=== PATIENT | female | born 1975 | race Caucasian/White ===

== ENCOUNTER 2017-06-18 15:24 | Emergency (ER) | payer OTHER ==
[2017-06-18 16:10] LABS: ABSOLUTE BASOPHILS # (AUTO) 0.1 10^3/uL (0.0-0.2); ABSOLUTE EOSINOPHILS # (AUTO) 0.5 10^3/uL (0.0-0.6); ABSOLUTE MONOCYTES (AUTO) 1.3 10^3/uL (0.1-1.4); ABSOLUTE NEUT (AUTO) 8.4 10^3/uL (1.7-8.2); BASOPHILS % (AUTO) 0.7 % (0-2); EOSINOPHILS % (AUTO) 3.2 % (0-6); HGB HCT DIFFERENCE -2.6; LYMPHOCYTES % (AUTO) 28.3 % (13-45); MEAN CORPUSCULAR HEMOGLOBIN 17.3 pg (27.0-33.4); MEAN CORPUSCULAR HGB CONC 29.5 g/dL (32.0-36.0); RED BLOOD COUNT 3.91 10^6/uL (3.72-5.28); RED CELL DISTRIBUTION WIDTH 19.2 % (11.5-14.0); SEGMENTED NEUTROPHILS % (AUTO) 58.8 % (42-78); WHITE BLOOD COUNT 14.2 10^3/uL (4.0-10.5)
[2017-06-18 16:15] LABS: HEMOGLOBIN 6.8 g/dL (12.0-15.5)
[2017-06-18] MEDS ORDERED: NORMAL SALINE 250 ML IV PRN (16:17)
[2017-06-18 16:30] LABS: ANION GAP 12 (5-19); BLOOD UREA NITROGEN 11 mg/dL (7-20); CALCIUM 9.5 mg/dL (8.4-10.2); CARBON DIOXIDE 25 mmol/L (22-30); CHLORIDE 105 mmol/L (98-107); CREATINE KINASE 22 U/L (30-135); CREATININE RESULT 0.88 mg/dL (0.52-1.25); GLUCOSE 70 mg/dL (75-110); POTASSIUM 4.3 mmol/L (3.6-5.0); SODIUM 141.6 mmol/L (137-145)
[2017-06-18 16:33] LABS: ANISOCYTOSIS 2+; HYPOCHROMASIA 2+; MICROCYTOSIS 4+; OVALOCYTES 1+; POIKILOCYTOSIS 1+; POLYCHROMASIA 1+; SCHISTOCYTES SLIGHT; TARGET CELLS SLIGHT; TEAR DROP CELLS SLIGHT; TOXIC GRANULATION SLIGHT
[2017-06-18 16:34] LABS: MEAN CORPUSCULAR VOLUME 59 fl (80-97)
--- NOTE | 2017-06-18 16:48 | ER Document Report ---
ED GI/ - General Chief Complaint: Vaginal Bleeding Stated Complaint: VAGINAL BLEEDING Time Seen by Provider: 06/18/17 16:16 Mode of Arrival: Stretcher Information source: Patient - HPI Patient complains to provider of: Vaginal bleeding Timing/Duration: Gradual Quality of pain: Achy Severity at maximum: Mild Severity in ED: Mild Location: Pelvis Vaginal bleeding (Compared to normal period): Heavier Menstrual period history: Abnormal Associated symptoms: None Notes: 06/18/17 16:46 Patient is a 42-year-old female sent to the emergency room from the [place] for concerns of low hemoglobin, patient reports that she had vaginal bleeding for 21 days which stopped yesterday, she was called by the [facility] and told to report to the emergency room for possible blood transfusion, she reports that she had some pelvic cramping when she was bleeding but that has since resolved as well, she does report generalized weakness with shortness of breath or dyspnea on exertion at times, denies any history of irregular vaginal bleeding in the past , no known history of uterine fibroids or any other pathology, no history of blood transfusions in the past - Related Data Allergies/Adverse Reactions: No Known Allergies Allergy (Unverified 03/06/13 00:51) Past Medical History - General Information source: Patient - Social History Smoking Status: Never Smoker Frequency of alcohol use: Rare Drug Abuse: None Family History: Reviewed & Not Pertinent Pulmonary Medical History: Reports: Hx Asthma Endocrine Medical History: Reports: Hx Diabetes Mellitus Type 2 Past Surgical History: Reports: Hx Orthopedic Surgery - left ankle, Hx Tonsillectomy, Hx Tubal Ligation - Immunizations Hx Diphtheria, Pertussis, Tetanus Vaccination: No Review of Systems - Review of Systems Constitutional: Malaise, Weakness EENT: No symptoms reported Cardiovascular: Dyspnea Respiratory: No symptoms reported Gastrointestinal: No symptoms reported Genitourinary: No symptoms reported Female Genitourinary: See HPI Musculoskeletal: No symptoms reported Skin: No symptoms reported Hematologic/Lymphatic: Anemia Neurological/Psychological: No symptoms reported -: Yes All other systems reviewed and negative Physical Exam - Vital signs Vitals: Resp 9 L 06/18/17 15:36 Interpretation: Normal - General General appearance: Appears well, Alert - HEENT Head: Normocephalic, Atraumatic Eyes: Normal Pupils: PERRL - Respiratory Respiratory status: No respiratory distress Chest status: Nontender Breath sounds: Normal Chest palpation: Normal - Cardiovascular Rhythm: Regular Heart sounds: Normal auscultation Murmur: No - Abdominal Inspection: Normal Distension: No distension Bowel sounds: Normal Tenderness: Nontender Organomegaly: No organomegaly - Genitourinary External exam: Normal Speculum exam: Normal Vaginal bleeding: Mild Bimanuel exam: Normal - Back Back: Normal, Nontender - Extremities General upper extremity: Normal inspection, Nontender, Normal color, Normal ROM , Normal temperature General lower extremity: Normal inspection, Nontender, Normal color, Normal ROM , Normal temperature, Normal weight bearing. No: Clyde's sign - Neurological Neuro grossly intact: Yes Cognition: Normal Orientation: AAOx4 [place] Coma Scale Eye Opening: Spontaneous [place] Coma Scale Verbal: Oriented [place] Coma Scale Motor: Obeys Commands [place] Coma Scale Total: 15 Speech: Normal Motor strength normal: LUE, RUE, LLE, RLE Sensory: Normal - Psychological Associated symptoms: Normal affect, Normal mood - Skin Skin Temperature: Warm Skin Moisture: Dry Skin Color: Pale Course - Re-evaluation Re-evalutation: 06/18/17 18:10 Patient was discussed with on-call [facility], Dr. 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 who is 8 cm dilated and will stop down to see patient after that patient is stabilized 06/18/17 19:34 Patient resting comfortably with no complaints at present time, blood transfusion is running at present, I did discuss the treatment plan with patient that she received 2 units of blood in the emergency department, [facility] will come down and see her in consult on her, and ultrasound has been ordered which will be performed at bedside, provided everything goes well with the transfusion patient will be discharged once transfusion is complete with instructions to follow-up with [facility] Wednesday, patient acknowledges understanding and agreement with this plan 06/18/17 19:38 Plan was discussed with ED physician Dr. Perry who will continue to monitor patient for disposition - Vital Signs Vital signs: Temp Pulse Resp BP Pulse Ox 98.1 F 15 116/69 99 06/18/17 18:16 06/18/17 18:46 06/18/17 18:46 06/18/17 15:51 - Laboratory Result Diagrams: 06/18/17 15:40 06/18/17 15:40 Laboratory results interpreted by me: 06/18/17 06/18/17 06/18/17 15:40 15:40 15:40 WBC 14.2 H Hgb 6.8 L Hct 23.0 L MCV 59 L MCH 17.3 L MCHC 29.5 L RDW 19.2 H Absolute Neutrophils 8.4 H Glucose 70 L Creatine Kinase 22 L Urine Blood Crossmatch See Detail 06/18/17 17:55 WBC Hgb Hct MCV MCH MCHC RDW Absolute Neutrophils Glucose Creatine Kinase Urine Blood SMALL H Crossmatch Discharge - Discharge Clinical Impression: Dysfunctional uterine bleeding Anemia Qualifiers: Anemia type: unspecified type Qualified Code(s): D64.9 - Anemia, unspecified Condition: Stable Disposition: HOME, SELF-CARE Instructions: Anemia ([facility]), Dysfunctional Uterine Bleeding ([facility]) Additional Instructions: Follow up with your primary care provider and [facility] in one to 2 days. Return to the emergency room immediately if symptoms worsen or any additional concerns.
[2017-06-18 18:32] LABS: APPEARANCE,URINE CLEAR; BILIRUBIN,URINE NEGATIVE (NEGATIVE); GLUCOSE, URINE NEGATIVE (NEGATIVE); KETONES,URINE NEGATIVE (NEGATIVE); LEUKOCYTE ESTERASE,URINE NEGATIVE (NEGATIVE); NITRITE,URINE NEGATIVE (NEGATIVE); PROTEIN,URINE NEGATIVE (NEGATIVE); URINE SPECIFIC GRAVITY 1.006; UROBILINOGEN,URINE NEGATIVE mg/dL (<2.0)
--- NOTE | 2017-06-18 20:56 | PDOC CONSULTATION ---
Consultation Consult Date: 06/18/17 Attending physician:: DONELL HAMM Consult reason:: Anemia History of Present Illness Admission Date/PCP: 06/18/2017 Patient complains of: anemia. recent vaginal bleeding for approximately 21days History of Present Illness: CLINT ENNIS is a 42 year old female with h/o BTL presents via EMT from [place] due to anemia noted at [place] and sent to ER for transfusion. REviewed history with pt. She reports occasion VERA and SOB and VANCE but is feeling somewhat better since transfusion began. She reports that she for the last several months has had irregular menses and the last 21 days has been heavier than normal menstrual bleeding. She denies h/o abnl pap smears and last pap was at the [place] 1-2 years ago and normal. She Denies any other concerns. She reports that vaginal bleeding stopped yesterday. Past Medical History LMP: 05/28/2017 Gynecological Infection: No Obstetrical History: none - Pulmonary Medical History: Reports: Asthma Endocrine Medical History: Reports: Diabetes Mellitus Type 2 Social History Information Source: Patient Lives with: Family Smoking Status: Never Smoker Hx Recreational Drug Use: No Drugs: None Hx Prescription Drug Abuse: No - Advance Directive Resuscitation Status: Full Code Family History Family History: Reviewed & Not Pertinent Parental Family History Reviewed: No Children Family History Reviewed: NA Sibling(s) Family History Reviewed.: NA Medication/Allergy Home Medications: Amoxicillin 500 mg PO TID #21 tablet 03/06/13 Ibuprofen [Motrin 800 Mg Tablet] 800 mg PO Q6H #20 tablet 03/06/13 Phenylephrine HCl/Cod/Prometh [Phenergan Vc-Codeine Syrup] 5 - 10 ml PO Q4H # 120 ml 03/06/13 Allergies/Adverse Reactions: No Known Allergies Allergy (Unverified 03/06/13 00:51) Review of Systems Constitutional: PRESENT: fatigue, headache(s). ABSENT: chills, fever(s), weight gain, weight loss Nose, Mouth, and Throat: PRESENT: headache(s) Cardiovascular: PRESENT: dyspnea on exertion. ABSENT: chest pain, orthropnea, palpitations Gastrointestinal: PRESENT: other - mild abd cramping with menses. ABSENT: abdominal pain, constipation, diarrhea, hematemesis, hematochezia, nausea, vomiting Genitourinary: ABSENT: dysuria, hematuria Musculoskeletal: ABSENT: joint swelling Integumentary: ABSENT: rash, wounds Neurological: ABSENT: abnormal gait, abnormal speech, confusion, dizziness, focal weakness, syncope Psychiatric: ABSENT: anxiety, depression, homidical ideation, suicidal ideation Endocrine: ABSENT: cold intolerance, heat intolerance, polydipsia, polyuria Hematologic/Lymphatic: ABSENT: easy bleeding, easy bruising Physical Exam - Physical Exam Vital Signs: Temp Pulse Resp BP Pulse Ox 98.1 F 15 116/69 99 06/18/17 18:16 06/18/17 18:46 06/18/17 18:46 06/18/17 15:51 Intake & Output 06/17/17 06/18/17 06/19/17 06:59 06:59 06:59 Intake Total 0 Balance 0 Weight 98.3 kg General appearance: PRESENT: no acute distress, well-developed, well-nourished Head exam: PRESENT: atraumatic, normocephalic Neck exam: PRESENT: full ROM. ABSENT: carotid bruit, JVD, lymphadenopathy, thyromegaly Respiratory exam: PRESENT: clear to auscultation ashley, symmetrical, unlabored. ABSENT: tachypnea Cardiovascular exam: PRESENT: RRR. ABSENT: diastolic murmur, rubs, systolic murmur Pulses: PRESENT: normal dorsalis pedis pul, +2 pedal pulses bilateral Vascular exam: PRESENT: normal capillary refill GI/Abdominal exam: PRESENT: normal bowel sounds, soft, tenderness - mild ttp in LLQ. ABSENT: distended, guarding, mass, organolmegaly, rebound Rectal exam: PRESENT: deferred Extremities exam: PRESENT: full ROM. ABSENT: calf tenderness, clubbing, pedal edema Neurological exam: PRESENT: alert, awake, oriented to person, oriented to place , oriented to time, oriented to situation, CN II-XII grossly intact. ABSENT: motor sensory deficit Psychiatric exam: PRESENT: appropriate affect, normal mood. ABSENT: homicidal ideation, suicidal ideation Skin exam: PRESENT: dry, intact, warm. ABSENT: cyanosis, rash Result Laboratory Results: 06/18/17 15:40 06/18/17 15:40 06/18/17 06/18/17 06/18/17 15:40 15:40 15:40 WBC 14.2 H RBC 3.91 Hgb 6.8 L Hct 23.0 L MCV 59 L MCH 17.3 L MCHC 29.5 L RDW 19.2 H Plt Count 423 Seg Neutrophils % 58.8 Lymphocytes % 28.3 Monocytes % 9.0 Eosinophils % 3.2 Basophils % 0.7 Absolute Neutrophils 8.4 H Absolute Lymphocytes 4.0 Absolute Monocytes 1.3 Absolute Eosinophils 0.5 Absolute Basophils 0.1 Sodium 141.6 Potassium 4.3 Chloride 105 Carbon Dioxide 25 Anion Gap 12 BUN 11 Creatinine 0.88 Est GFR ( Amer) > 60 Est GFR (Non-Af Amer) > 60 Glucose 70 L Calcium 9.5 Urine Color Urine Appearance Urine pH Ur Specific [place] Urine Protein Urine Glucose (UA) Urine Ketones Urine Blood Urine Nitrite Ur Leukocyte Esterase Urine WBC (Auto) Blood Type O POSITIVE Antibody Screen NEGATIVE 06/18/17 17:55 WBC RBC Hgb Hct MCV MCH MCHC RDW Plt Count Seg Neutrophils % Lymphocytes % Monocytes % Eosinophils % Basophils % Absolute Neutrophils Absolute Lymphocytes Absolute Monocytes Absolute Eosinophils Absolute Basophils Sodium Potassium Chloride Carbon Dioxide Anion Gap BUN Creatinine Est GFR ( Amer) Est GFR (Non-Af Amer) Glucose Calcium Urine Color YELLOW Urine Appearance CLEAR Urine pH 5.0 Ur Specific [place] 1.006 Urine Protein NEGATIVE Urine Glucose (UA) NEGATIVE Urine Ketones NEGATIVE Urine Blood SMALL H Urine Nitrite NEGATIVE Ur Leukocyte Esterase NEGATIVE Urine WBC (Auto) 0 Blood Type Antibody Screen 06/18/17 06/18/17 15:40 15:40 Creatine Kinase 22 L CK-MB (CK-2) Cancelled Troponin I Cancelled Status: Pending Assessment & Plan - Diagnosis (1) Dysfunctional uterine bleeding Is this a current diagnosis for this admission?: Yes Plan: Recommend US for evaluation of uterus and uterine lining. WOuld also recommend Pap smear and EMBx in office. Pt instructed to contact [place] and ask for referral if that is needed to f/u in office at [facility] for this evaluation and management. US currently pending. No need for admission or emergent treatment or surgical treatment. Reviewed provera 20mg po daily to assist with continued cessation of bleeding until completion of evaluation can occur. She verbalized understanding. Would recommend off work for a couple of days to rest and feel better after transfusion. Would recommed BID to TID iron and colace daily to BID if needed. Rx for provera given to pt. Recommend f/u at [facility] next week for conitnued evaluation and management. [address] [place] [address] [phone] (2) Anemia Qualifiers: Anemia type: unspecified type Qualified Code(s): D64.9 - Anemia, unspecified Is this a current diagnosis for this admission?: Yes Plan: Pt recieved 1st unit of blood already and is waiting for 2nd unit. Pt reporting very dark to black stools as well. Would recommend outpatient consultation with GI to rule out additional source of bleeding that can cause anemia.
--- NOTE | 2017-06-18 21:42 | RADIOLOGY REPORT (SQ) ---
EXAM DESCRIPTION: U/S NON OB PEL TV W/DOPPLER COMPLETED DATE/TIME: 06/18/2017 9:30 pm REASON FOR STUDY: vaginal bleeding COMPARISON: None. TECHNIQUE: Dynamic and static grayscale images acquired of the pelvis via transvaginal approach and recorded on PACS. Additional selected color Doppler and spectral images recorded. LIMITATIONS: None. FINDINGS: UTERUS: Contour normal. No mass. ENDOMETRIAL STRIPE: No focal or generalized thickening. No masses. CERVIX: Nabothian cysts. RIGHT OVARY: Ovary not visualized. RIGHT OVARY DOPPLER: Ovary not visualized. LEFT OVARY: Normal with dominant follicles. No abnormal masses. LEFT OVARY DOPPLER: Normal arterial vascular flow without evidence for torsion. FREE FLUID: None noted. OTHER: No other significant finding. MEASUREMENTS: UTERUS: 10.0 x 5.8 x 6.4 cm. ENDOMETRIAL STRIPE: 1.9 mm. RIGHT OVARY: Not visualized. LEFT OVARY: 4.8 x 3.2 x 3.3 cm. IMPRESSION: NORMAL TRANSVAGINAL PELVIC ULTRASOUND. RIGHT OVARY NOT VISUALIZED. TECHNICAL DOCUMENTATION: JOB ID: [id number]- All Rights Reserved
[2017-06-19 00:09] VITALS: BP 119/68
== END 2017-06-18 23:41 | disposition home or self-care (01) ==
LOC: ER 15:24
DX: N93.8 Other specified abnormal uterine and vaginal bleeding (principal); D64.9 Anemia, unspecified; R53.1 Weakness; R53.81 Other malaise; J45.909 Unspecified asthma, uncomplicated; E11.9 Type 2 diabetes mellitus without complications; R06.00 Dyspnea, unspecified
CPT/HCPCS: 99285; 86900; 86901; 36415; 36430; 86850; 82550; 85025; 80048; 81001; 86920; 76830; 93976; P9016

== ENCOUNTER → 2020-05-20 | Outpatient (CLI) | payer OTHER ==
[2020-05-20 16:30] LABS: ABSOLUTE EOSINOPHILS # (AUTO) 0.6 10^3/uL (0.0-0.6); ABSOLUTE LYMPHOCYTES (AUTO) 3.1 10^3/uL (0.5-4.7); ABSOLUTE MONOCYTES (AUTO) 0.4 10^3/uL (0.1-1.4); ABSOLUTE NEUT (AUTO) 4.2 10^3/uL (1.7-8.2); BASOPHILS % (AUTO) 0.4 % (0-2); EOSINOPHILS % (AUTO) 6.8 % (0-6); HEMATOCRIT 45.2 % (36.0-47.0); HEMOGLOBIN 15.3 g/dL (12.0-15.5); LYMPHOCYTES % (AUTO) 37.2 % (13-45); MEAN CORPUSCULAR HEMOGLOBIN 29.3 pg (27.0-33.4); MEAN CORPUSCULAR HGB CONC 33.7 g/dL (32.0-36.0); MEAN CORPUSCULAR VOLUME 87 fl (80-97); MONOCYTES % (AUTO) 5.4 % (3-13); PLATELET COUNT 273 10^3/uL (150-450); RED BLOOD COUNT 5.21 10^6/uL (3.72-5.28); RED CELL DISTRIBUTION WIDTH 13.5 % (11.5-14.0); SEGMENTED NEUTROPHILS % (AUTO) 50.2 % (42-78); TOTAL CELLS COUNTED % (AUTO) 100 %; WHITE BLOOD COUNT 8.2 10^3/uL (4.0-10.5)
--- NOTE | 2020-05-20 16:33 | RADIOLOGY REPORT (SQ) ---
EXAM DESCRIPTION: CHEST PA/LATERAL IMAGES COMPLETED DATE/TIME: 05/20/2020 4:02 pm REASON FOR STUDY: PRE-OP COMPARISON: 2012 EXAM PARAMETERS: NUMBER OF VIEWS: two views TECHNIQUE: Digital Frontal and Lateral radiographic views of the chest acquired. RADIATION DOSE: NA LIMITATIONS: none FINDINGS: LUNGS AND PLEURA: No opacities, masses or pneumothorax. No pleural effusion. MEDIASTINUM AND HILAR STRUCTURES: No masses or contour abnormalities. HEART AND VASCULAR STRUCTURES: Heart normal size. No evidence for failure. BONES: No acute findings. HARDWARE: None in the chest. OTHER: No other significant finding. IMPRESSION: NO SIGNIFICANT RADIOGRAPHIC FINDING IN THE CHEST. TECHNICAL DOCUMENTATION: JOB ID: [id number] 2010 [employer]- All Rights Reserved Reading location - IP/workstation name: [email or web address]
[2020-05-20 16:52] LABS: ANION GAP 10 (5-19); BLOOD UREA NITROGEN 18 mg/dL (7-20); CARBON DIOXIDE 27 mmol/L (22-30); CHLORIDE 100 mmol/L (98-107); GLUCOSE 135 mg/dL (75-110); POTASSIUM 4.4 mmol/L (3.6-5.0)
[2020-05-20 16:54] LABS: ALBUMIN 4.5 g/dL (3.5-5.0); C-REACTIVE PROTEIN 8.6 mg/L (<10.0)
--- NOTE | 2020-05-20 17:52 | EKG REPORT ---
SEVERITY:- BORDERLINE ECG - SINUS RHYTHM BORDERLINE INFERIOR Q WAVES BORDERLINE T WAVE ABNORMALITIES : Confirmed by: Kael Kirby MD 20-May-2020 17:52:03
[2020-05-20 17:53] LABS: APPEARANCE,URINE SLIGHTLY-CLOUDY; BILIRUBIN,URINE NEGATIVE (NEGATIVE); COLOR,URINE YELLOW; GLUCOSE, URINE NEGATIVE (NEGATIVE); KETONES,URINE NEGATIVE (NEGATIVE); LEUKOCYTE ESTERASE,URINE NEGATIVE (NEGATIVE); NITRITE,URINE NEGATIVE (NEGATIVE); PROTEIN,URINE NEGATIVE (NEGATIVE); URINE SPECIFIC GRAVITY 1.018; UROBILINOGEN,URINE NEGATIVE mg/dL (<2.0)
== END ==
LOC: OD 15:15
PROVIDERS: ATTEND Orthopaedic Surgery
DX: Z01.810 Encounter for preprocedural cardiovascular examination (principal); Z01.811 Encounter for preprocedural respiratory examination; Z01.812 Encounter for preprocedural laboratory examination; Z01.818 Encounter for other preprocedural examination
CPT/HCPCS: 36415; 71046; 80048; 81001; 82040; 82306; 83036; 85025; 85652; 86140; 93005; 93010